=== PATIENT | female | born 1955 | race Caucasian/White ===

== ENCOUNTER 2022-05-23 16:11 | Emergency (ER) | payer OTHER ==
[2022-05-23 16:32] VITALS: BP 115/64; PULSE 77; RESP 18; TEMP 98.1; BMI 47.9
[2022-05-23] MEDS ORDERED: ACETAMINOPHEN 500 MG TABLET (FP) PO ONE (17:24)
[2022-05-23] MEDS ORDERED: ACETAMINOPHEN 500 MG TABLET (FP) ONE (17:32)
[2022-05-23] MEDS ORDERED: IBUPROFEN 600 MG TABLET (FP) PO ONE ×2 (18:40→18:41)
== END 2022-05-23 19:02 | disposition home or self-care (01) ==
LOC: JERFT 16:11
PROC: 2W39X1Z Immobilization of Left Upper Extremity using Splint (ICD-10-PCS; principal; 2022-05-23)
DX: S52.225A Nondisplaced transverse fracture of shaft of left ulna, initial encounter for closed fracture (principal); Y04.0XXA Assault by unarmed brawl or fight, initial encounter
CPT/HCPCS: 73090-TC-LT-FY; 99283-25